=== PATIENT | male | born 1965 | race Caucasian/White ===

== ENCOUNTER 2020-08-25 08:01 | Emergency (ER) | payer MEDICAID ==
[~2020-08-25] VITALS: Ht 180.3 cm; Wt 115.9 kg
[2020-08-25 08:05] VITALS: BP 135/84
--- NOTE | 2020-08-25 08:24 | NUR ---
Pt here for left gum induration that cuasing him discomfort. Pt is covid +19
--- NOTE | 2020-08-25 08:56 | NUR ---
Patient/Caregiver given discharge instructions and they have confirmed that they understand the instructions. Patient ambulatory with steady gait.
== END 2020-08-25 08:58 | disposition home or self-care (01) ==
LOC: ED 08:25
DX: K02.9 Dental caries, unspecified (principal); R22.0 Localized swelling, mass and lump, head
CPT/HCPCS: 99283